=== PATIENT | male | born 1975 | race Hispanic/Latino ===

== ENCOUNTER 2018-01-03 09:08 | Day surgery (SDC) | payer MEDICARE ==
[~2018-01-03 09:08] MED LIST: ANCEF/STERILE WATER 2 GM/20 ML 2 GM/20 ML SYRINGE IV NR; HEPARIN 10,000 UNITS/10 ML ONE; MARCAINE 0.5% INFILTRATI ONE; MARCAINE-EPI 0.5%-1:200,000 INFILTRATI ONE; NACL 0.9% 1000 ML 1,000 ML IV SCH; NACL 0.9% 500 ML 500 ML ONE
--- NOTE | 2018-01-03 09:42 | Anesthesia Day of Surgery ---
Anesthesia Day of Surgery - Day of Surgery Patient Examined: Yes Patient H&P Reviewed: Yes Patient is NPO: Yes Beta Blockers: Yes Cardiac Clearance: Yes
--- NOTE | 2018-01-03 09:42 | Anesthesia Consultation ---
Anesthesia Consult and Med Hx Date of service: 01/03/18 - Airway Anesthetic Teeth Evaluation: Good ROM Head & Neck: Adequate Mental/Hyoid Distance: Adequate Mallampati Class: Class II Intubation Access Assessment: Probably Good - Pulmonary Exam CTA: Yes - Cardiac Exam Cardiac Exam: RRR - Pre-Operative Health Status ASA Pre-Surgery Classification: ASA4 Proposed Anesthetic Plan: MAC - Pulmonary Hx Smoking: Yes (former) SOB: Yes (only occurs with high fluid volume) COPD: Yes Hx Pneumonia: Yes (h/o 2014) - Cardiovascular System Hx Hypertension: Yes Hx Coronary Artery Disease: Yes Hx Heart Attack/AMI: Yes (ECHO 12/29/16 EF 35%) Hx Percutaneous Transluminal Coronary Angioplasty (PTCA): Yes (10/2016) Hx Cardia Arrhythmia: Yes (paroxismal a-fib) Hx Peripheral Vascular Disease: Yes - Central Nervous System CVA: Yes (2013) Hx Psychiatric Problems: Yes - Gastrointestinal Hx Gastroesophageal Reflux Disease: Yes - Endocrine Hx Renal Disease: Yes Hx End Stage Renal Disease: Yes Hx Insulin Dependent Diabetes: Yes (last A1C 6.3) Hx Non-Insulin Dependent Diabetes: Yes - Hematic Hx Anemia: Yes Hx Sickle Cell Disease: No - Other Systems Hx Alcohol Use: No Hx Substance Use: No Hx Cancer: No Hx Obesity: Yes (BMI 38.8)
[2018-01-03] MEDS ORDERED: DIPRIVAN 10 MG/ML IV ONE ×3 (09:58→11:51)
[2018-01-03] MEDS ORDERED: VERSED IV NR (10:00)
[2018-01-03] MEDS ORDERED: SUBLIMAZE ONE (10:51)
[2018-01-03] MEDS ORDERED: SODIUM BICARBONATE IV ONE (11:01)
[2018-01-03] MEDS ORDERED: NACL 0.9% IR ONE (11:01)
[2018-01-03] MEDS ORDERED: MARCAINE 0.5% INFILTRATI ONE (11:01)
[2018-01-03] MEDS ORDERED: XYLOCAINE 1%/ EPI 1:100,000 INFILTRATI ONE ×2 (11:01→13:09)
--- NOTE | 2018-01-03 12:45 | Operative Report ---
Operative Report Operative Report: Date of procedure: 01/03/2018 Pre-operative diagnosis: Failing AV fistula left arm, end-stage renal disease on hemodialysis Post-operative diagnosis: Same Procedure name(s): ReVision of radial cephalic fistula left arm Surgeon: Travis Flores MD Utility Service Worker: None Anesthesia: Local Mac EBL: Minimal Specimen(s): None Complications: None Findings: Adequate size vein above the heavily stenotic and barely flowing segment near the arterial anastomosis. Excellent thrill and bruit in the newly created fistula. Hand perfusion preserved. Procedure: [Patient in the supine position with the left arm extended after adequate levels of sedation was obtained the left arm was then prepped and draped using standard sterile technique. I had previously identified and marked the cephalic vein using duplex scanning and I anesthetized the skin overlying the anticipated course of the vein. Longitudinal incision was then made to the proximal to the original vein harvest incision overlying the cephalic vein and extended for several centimeters proximally. The vein was identified and mobilized distally. The segment of vein that formed the mobilized portion that anastomosis with the radial artery was heavily stenotic and barely flowing. I ligated this section but mobilized a large side branch further distally to maintain length. This vein was divided distally and the entire new system was hydrodilated and noted to be of excellent caliber. A bulldog clamp was used to occlude the vessel. A second parallel incision was made directly over the radial artery once again slightly proximal to the original incision through anesthetized skin. Radial artery was then mobilized and controlled. A subcutaneous tunnel between the 2 incisions was created in the fistula was then brought into the radial artery (volar surface of the wrist ) and a nonrotational fashion. Artery was then occluded and a longitudinal arteriotomy was then made corresponding to the size of the cephalic vein. Artery itself had significant calcium in the wall and was not especially distensible but did have adequate flow. An end to side anastomosis was then created using 6-0 Prolene suture in running technique. Prior to the completion of the suture line antegrade and retrograde flushing was performed and the vein was once again dilated with saline. Suture line was completed and flow was released retrograde into the fistula and then antegrade into the fistula. Flow was then released to the hand without sequelae. Excellent Doppler signals in the ulnar and palmar arch were noted. The fistula developed a prompt thrill and bruit and distended nicely. The incision was hemostatic and was then blocked with Marcaine 0.5% plain. Both incisions were then closed using 3-0 Vicryl subcutaneous for Monocryl subcuticular. The skin was sealed with Dermabond. Patient was then returned to the supine position and transported to the recovery room in stable condition having tolerated the procedure well. AV fistula function was excellent.
--- NOTE | 2018-01-03 12:59 | Short Stay Summary ---
Short Stay Documentation Date of service: 01/03/18 Narrative H&P: Patient admitted to the operative suite for elective outpatient revision of an AV fistula - History H&P: obtained from office - Allergies and Medications Current Medications: Allergies levofloxacin [From Levaquin] Allergy (Verified 09/27/16 11:37) Itching Home Medications Medication Instructions Recorded Confirmed Last Taken Type Adult Low Dose Aspirin EC 81 mg PO DAILY 12/29/16 01/02/18 01/02/18 History Apixaban [Eliquis] 2.5 mg PO QDAY 12/29/16 01/02/18 01/03/18 08:30 History ALPRAZolam [Xanax TAB] 1 tab PO PRN PRN 01/02/18 01/02/18 01/02/18 History Insulin Lispro [Humalog] 10 units SQ TID 01/02/18 01/02/18 01/02/18 History Metoprolol [Lopressor TAB] 25 mg PO BID 01/02/18 01/02/18 01/03/18 08:30 History PARoxetine (NF) [Paxil (Nf)] 30 mg PO DAILY 01/02/18 01/02/18 01/03/18 08:30 History Furosemide [Lasix] 80 mg PO BID 01/03/18 01/03/18 01/03/18 08:30 History Active Medications Sodium Chloride (Nacl 0.9% 1000 Ml) 1,000 mls @ 42 mls/hr IV DIRECT SHAI Last Admin: 01/03/18 09:55 Dose: 42 mls/hr Midazolam HCl (Versed) 2 mg IV PREOP NR Stop: 01/03/18 23:59 Last Admin: 01/03/18 10:00 Dose: 2 mg - Brief post op/procedure progress note Date of procedure: 01/03/18 Procedure: Pre-operative diagnosis: Failing AV fistula left arm, end-stage renal disease on hemodialysis Post-operative diagnosis: Same Procedure name(s): ReVision of radial cephalic fistula left arm Surgeon: Travis Flores MD Customs And Immigration Officer: None Anesthesia: Local Mac EBL: Minimal Specimen(s): None Complications: None Findings: Adequate size vein above the heavily stenotic and barely flowing segment near the arterial anastomosis. Excellent thrill and bruit in the newly created fistula. Hand perfusion preserved. Procedure: [Patient in the supine position with the left arm extended after adequate levels of sedation was obtained the left arm was then prepped and draped using standard sterile technique. I had previously identified and marked the cephalic vein using duplex scanning and I anesthetized the skin overlying the anticipated course of the vein. Longitudinal incision was then made to the proximal to the original vein harvest incision overlying the cephalic vein and extended for several centimeters proximally. The vein was identified and mobilized distally. The segment of vein that formed the mobilized portion that anastomosis with the radial artery was heavily stenotic and barely flowing. I ligated this section but mobilized a large side branch further distally to maintain length. This vein was divided distally and the entire new system was hydrodilated and noted to be of excellent caliber. A bulldog clamp was used to occlude the vessel. A second parallel incision was made directly over the radial artery once again slightly proximal to the original incision through anesthetized skin. Radial artery was then mobilized and controlled. A subcutaneous tunnel between the 2 incisions was created in the fistula was then brought into the radial artery (volar surface of the wrist ) and a nonrotational fashion. Artery was then occluded and a longitudinal arteriotomy was then made corresponding to the size of the cephalic vein. Artery itself had significant calcium in the wall and was not especially distensible but did have adequate flow. An end to side anastomosis was then created using 6-0 Prolene suture in running technique. Prior to the completion of the suture line antegrade and retrograde flushing was performed and the vein was once again dilated with saline. Suture line was completed and flow was released retrograde into the fistula and then antegrade into the fistula. Flow was then released to the hand without sequelae. Excellent Doppler signals in the ulnar and palmar arch were noted. The fistula developed a prompt thrill and bruit and distended nicely. The incision was hemostatic and was then blocked with Marcaine 0.5% plain. Both incisions were then closed using 3-0 Vicryl subcutaneous for Monocryl subcuticular. The skin was sealed with Dermabond. Patient was then returned to the supine position and transported to the recovery room in stable condition having tolerated the procedure well. AV fistula function was excellent. - Hospital course Hospital course: Benign - Disposition Condition at discharge: Stable Disposition: DC- TO HOME OR SELFCARE - Discharge Diagnoses (1) Mechanical complication of arteriovenous fistula surgically created Status: Chronic Qualifiers: Encounter type: subsequent encounter Qualified Code(s): T82.590D - Other mechanical complication of surgically created arteriovenous fistula, subsequent encounter (2) ESRD (end stage renal disease) on dialysis Status: Chronic Comment: Patient received hemodialysis twice and isoalted UF once with total of 12 Lts of fluid removed. Short Stay Discharge Plan Activity: advance as tolerated Weight Bearing Status: Full Weight Bearing Diet: renal Wound: keep clean and dry Special Instructions: no heavy lifting Follow up with: ALECIA MONTERO MD [Primary Care Provider] - 7 Days TRAVIS FLORES MD [Staff Physician] - 7 Days Prescriptions: HYDROcodone/APAP 7.5-325 [[place] 7.5/325] 1 each PO Q6HR PRN #28 tablet PRN Reason: Pain
[2018-01-03] MEDS ORDERED: SODIUM BICARBONATE ONE (13:09)
[2018-01-03 13:52] VITALS: BP 139/92
== END 2018-01-03 13:44 | disposition home or self-care (01) ==
LOC: OR 09:08
PROVIDERS: ATTEND Surgery Vascular Surgery
DX: T82.590A Other mechanical complication of surgically created arteriovenous fistula, initial encounter (principal); I12.0 Hypertensive chronic kidney disease with stage 5 chronic kidney disease or end stage renal disease; E11.22 Type 2 diabetes mellitus with diabetic chronic kidney disease; N18.6 End stage renal disease; I25.2 Old myocardial infarction; I48.0 Paroxysmal atrial fibrillation; I25.10 Atherosclerotic heart disease of native coronary artery without angina pectoris; J44.9 Chronic obstructive pulmonary disease, unspecified; E78.5 Hyperlipidemia, unspecified; K21.9 Gastro-esophageal reflux disease without esophagitis; E66.9 Obesity, unspecified; Z68.38 Body mass index [BMI] 38.0-38.9, adult; Z87.891 Personal history of nicotine dependence; Z79.899 Other long term (current) drug therapy; Z86.73 Personal history of transient ischemic attack (TIA), and cerebral infarction without residual deficits; Z88.1 Allergy status to other antibiotic agents; Z79.01 Long term (current) use of anticoagulants; Z79.4 Long term (current) use of insulin; Z79.82 Long term (current) use of aspirin; Z95.5 Presence of coronary angioplasty implant and graft; Y83.2 Surgical operation with anastomosis, bypass or graft as the cause of abnormal reaction of the patient, or of later complication, without mention of misadventure at the time of the procedure
CPT/HCPCS: 36415; 36832; 82803; 82962; 84132; J0690; J1644; J2250; J2704; J3010; J7030; J7040